=== PATIENT | female | born 1990 | race Two or more races ===

== ENCOUNTER 2016-11-30 13:56 | Emergency (ER) | payer SELFPAY ==
[~2016-11-30] VITALS: Ht 165.1 cm; Wt 131.0 kg
[2016-11-30 14:10] VITALS: BP 111/71
== END 2016-11-30 18:05 | disposition left against medical advice (07) ==
LOC: ER 13:56
DX: M79.89 Other specified soft tissue disorders (principal); Z53.21 Procedure and treatment not carried out due to patient leaving prior to being seen by health care provider